=== PATIENT | male | born 1980 | race Caucasian/White ===

== ENCOUNTER 2018-12-18 08:01 | Emergency (ER) | payer SELFPAY ==
[~2018-12-18] VITALS: Ht 154.9 cm; Wt 71.8 kg
[2018-12-18 08:03] VITALS: BP 155/83; RESP 18; Ht 154.9 cm; Wt 71.8 kg
[2018-12-18] MEDS ORDERED: ALBUTEROL 0.083% (NEB) 2.5 MG/3 ML AMP HHN STA (08:23)
[2018-12-18] MEDS ORDERED: DEXAMETHASONE 10 MG/ML 1 ML INJ IM ONE (08:30)
[2018-12-18] MEDS ORDERED: IPRATROPIUM (NEB) 0.5 MG/2.5 ML AMP HHN ONE (08:30)
[2018-12-18] MEDS ORDERED: ACETAMINOPHEN 500 MG TAB PO STA (09:29)
[2018-12-18] MEDS ORDERED: LIDOCAINE 1% (MPF) 5 ML VIAL INJ ONE (09:30)
[2018-12-18] MEDS ORDERED: CEFTRIAXONE 1 GM INJ IM ONE (09:30)
[2018-12-18] MEDS ORDERED: PRED20TA PO (09:32)
[2018-12-18] MEDS ORDERED: LEVO750T25 PO (09:32)
[2018-12-18] MEDS ORDERED: D-ME473S2 PO (09:32)
[2018-12-18] MEDS ORDERED: ALBU8.5H8 INH (09:34)
[2018-12-18 09:44] VITALS: PULSE 100
[2018-12-18] MEDS ORDERED: predniSONE 20 MG TAB PO ONE (10:00)
--- NOTE | 2018-12-18 11:42 | ERD ---
ER Documentation Chief Complaint Chief Complaint cough, congestion body aches, sob 3 wks HPI 38-year-old male presenting with cough and congestion with body aches times 3 weeks. He feels wheezy and had a tactile fever yesterday but has not taken medications today. He has ear pain with nasal congestion. Denies sick contacts. Denies medical problems. NKDA. Surgical history as a young child due to abdominal abscess. Social history denies ROS All systems reviewed and are negative except as per history of present illness. Medications Home Meds Active Scripts Albuterol Sulfate* (Proair HFA*) 8.5 Gm Hfa.aer.ad, 2 PUFF INH Q4, #1 INHALER Prov:EDUARDO LAWRENCE PA-C 12/18/18 Prednisone* (Prednisone*) 20 Mg Tab, 40 MG PO DAILY for 4 Days, TAB Prov:EDUARDO LWARENCE PA-C 12/18/18 Dextromethorphan Hb-Promethazine Hcl* (Promethazine DM* Syrup) 473 Ml Syrup, 5 ML PO Q6 PRN for COUGH, #100 ML Prov:EDUARDO LAWRENCE PA-C 12/18/18 Levofloxacin* (Levaquin*) 750 Mg Tablet, 750 MG PO DAILY for 5 Days, TAB Prov:EDUARDO LAWRENCE PA-C 12/18/18 Allergies Allergies: Coded Allergies: No Known Allergy (Unverified , 12/18/18) PMhx/Soc Medical and Surgical Hx: pt denies Medical Hx History of Surgery: Yes (Abdominal sx) Anesthesia Reaction: No Hx Alcohol Use: Yes (occasional) Hx Substance Use: No Hx Tobacco Use: No Smoking Status: Never smoker FmHx Family History: No diabetes, No coronary disease, No other Physical Exam Vitals Vital Signs Date Temp Pulse Resp B/P (MAP) Pulse Ox O2 O2 Flow FiO2 Time Delivery Rate 12/18/18 100 97 Room Air 09:44 12/18/18 89 18 96 21 08:39 12/18/18 98.6 98 18 155/83 97 08:03 (107) Physical Exam GENERAL: The patient is well-appearing, well-nourished, in no acute distress HEENT: Atraumatic. Conjunctivae are pink. Pupils equal, round, and reactive to light. There is no scleral icterus. Tympanic membranes clear bilaterally. Oropharynx clear. NECK: C-spine is soft and supple. There is no meningismus. There is no cervical lymphadenopathy. CHEST: Diminished breath sounds heard throughout with wheezing. No focal rhonchi or retractions. HEART: Regular rate and rhythm. No murmurs, clicks, rubs or gallops. Results 24 hrs Current Medications Medications Dose Sig/Denise Start Time Status Last (Trade) Ordered Route PRN Stop Time Admin Dose Reason Admin Albuterol 5 mg ONCE STAT 12/18/18 DC 12/18/18 (Proventil HHN 08:23 12/18/18 08:38 0.083% (Neb)) 08:25 Ipratropium 0.5 mg ONCE ONCE 12/18/18 DC 12/18/18 [place] HHN 08:30 12/18/18 08:38 (Atrovent 08:31 0.02% (Neb)) 10 mg ONCE ONCE 12/18/18 DC 12/18/18 Dexamethasone IM 08:30 12/18/18 08:28 (Decadron) 08:31 Ceftriaxone 1 gm ONCE ONCE 12/18/18 DC 12/18/18 Sodium IM 09:30 12/18/18 09:40 (Rocephin) 09:31 Lidocaine 5 ml ONCE ONCE 12/18/18 DC 12/18/18 (Xylocaine INJ 09:30 12/18/18 09:39 1% (Mpf)) 09:31 1,000 mg ONCE STAT 12/18/18 DC 12/18/18 Acetaminophen PO 09:29 12/18/18 09:38 (Tylenol 09:30 Tab) Prednisone 60 mg ONCE ONCE 12/18/18 DC 12/18/18 (Prednisone) PO 10:00 12/18/18 09:38 10:00 Procedures/MDM DIAGNOSTIC IMAGING REPORT Patient: JARETT ROBERTS : 1980 Age: 38 Sex: M MR #: [id number] DOS: 12/18/18822 Ordering MD: RIGO LAWRENCE PA-C Location: [facility] Room/Bed: PROCEDURE: XR Chest. TECHNIQUE: Single frontal radiograph. CLINICAL INDICATION: cough COMPARISON: None. FINDINGS: Lung volumes are low with elevation of the right hemidiaphragm. There is right basilar atelectasis. There is mild blunting of the left costophrenic angle, consistent with trace pleural effusion. There are streaky interstitial densities extending from the kavitha to the peripheral lungs, more asymmetric in the left mid lung and right perihilar lung. No pneumothorax identified. Cardiomediastinal silhouette is within normal limits, allowing for low lung volumes. No acute osseous abnormality identified within the visualized thorax. Overlying soft tissues are equally unremarkable. IMPRESSION: Low lung volumes with elevation right hemidiaphragm and right basilar atelectasis. Streaky interstitial densities extending from the kavitha to the peripheral lungs, with greater asymmetry in the left mid lung and right perihilar lung. Findings can be acute or chronic and secondary to airway inflammation or interstitial edema. Focal consolidation cannot be excluded. For improved diagnostic sensitivity and confidence, PA and lateral technique with better inspiration is recommended. Trace left pleural effusion. ER Course: Albuterol and Atrovent breathing treatment given ED and IM Decadron given in the ED. Upon reevaluation patient is resting comfortably and said his symptoms had improved. I have injection of Rocephin given. MDM: 38-year-old male presenting with cough with tactile fevers. Patient's x- rays concerning for possible pneumonia. I have considered a PE however was able to PERC out the patient. This case was discussed with Dr. Mckeon prior to discharge and it was felt there was no indication for further imaging or blood work. Patient symptoms improved with the breathing treatment. I have low suspicion for cardiac emergency. Patient is discharged with strict ER precautions and recommended to take medication and return if symptoms change or worsen. Patient is discharged with strict ER precautions. All questions answered at discharge Departure Diagnosis: Primary Impression: Pneumonia Condition: Stable Patient Instructions: Pneumonia (Adult) Referrals: [facility] YOU HAVE RECEIVED A MEDICAL SCREENING EXAM AND THE RESULTS INDICATE THAT YOU DO NOT HAVE A CONDITION THAT REQUIRES URGENT TREATMENT IN THE EMERGENCY DEPARTMENT. FURTHER EVALUATION AND TREATMENT OF YOUR CONDITION CAN WAIT UNTIL YOU ARE SEEN IN YOUR DOCTORS OFFICE WITHIN THE NEXT 1-2 DAYS. IT IS YOUR RESPONSIBILITY TO MAKE AN APPOINTMENT FOR FOLOW-UP CARE. IF YOU HAVE A PRIMARY DOCTOR --you should call your primary doctor and schedule an appointment IF YOU DO NOT HAVE A PRIMARY DOCTOR YOU CAN CALL OUR PHYSICIAN REFERRAL HOTLINE AT IF YOU CAN NOT AFFORD TO SEE A PHYSICIAN YOU CAN CHOSE FROM THE FOLLOWING [facility] [address] [facility] [address] [facility] [facility] [address] [facility] [address] [facility] [phone] [facility]. [facility] [address] Additional Instructions: FOLLOW UP WITH YOUR PRIMARY CARE PHYSICIAN TOMORROW.Return to this facility if you are not improving as expected. EDUARDO LAWRENCE PA-C Dec 18, 2018 11:42
== END 2018-12-18 09:45 | disposition home or self-care (01) ==
LOC: FTE 08:01
DX: J18.9 Pneumonia, unspecified organism (principal)
CPT/HCPCS: 71045; 94664; 96372; 99284; J0696; J1100; J7512